=== PATIENT | female | born 1980 | race Caucasian/White ===

== ENCOUNTER 2021-05-19 22:34 | Emergency (ER) | payer BC ==
[~2021-05-19] VITALS: Ht 167.6 cm; Wt 77.1 kg
--- NOTE | 2021-05-19 23:00 | NUR ---
Pt provided urine sample, sent to lab.
[2021-05-19 23:24] LABS: HEMATOCRIT 36.8 % (31.2-41.9); MEAN CORPUSCULAR VOLUME 93.7 fL (75.5-95.3); PLATELET COUNT (AUTO) 196 K/uL (179-408)
[2021-05-19 23:27] LABS: *BILIRUBIN,URIN NEGATIVE (NEGATIVE); *BLOOD, URINE NEGATIVE (NEGATIVE); *CLARITY,URINE CLEAR (CLEAR); *COLOR,URINE YELLOW (YELLOW); *KETONES,URINE NEGATIVE (NEGATIVE); *UROBILINOGEN,URINE 0.2 E.U./dl (NORMAL); LEUKOCYTE ESTERASE ,URINE NEGATIVE (NEGATIVE); NITRITE, URINE NEGATIVE (NEGATIVE); PH,URINE 6.5 (5.0-8.0); UGLUCOSE NEGATIVE (NEGATIVE)
[2021-05-19 23:27] LABS: CARBON DIOXIDE 28 mmol/L (21-32); CHLORIDE 103 mmol/L (98-107); CREATININE 0.9 mg/dL (0.6-1.3); GLUCOSE 130 mg/dL (74-106); POTASSIUM 3.6 mmol/L (3.5-5.1); UREA NITROGEN, BLOOD 13 mg/dL (7-18)
[2021-05-19 23:32] LABS: ALANINE AMINOTRANSFERASE 88 U/L (14-59); ALKALINE PHOSPHATASE 102 U/L (50-136); ASPARTATE AMINOTRANSFERASE 48 U/L (15-37); BILIRUBIN,DIRECT 0.1 mg/dL (0.0-0.2); BILIRUBIN,TOTAL 0.1 mg/dL (0.2-1.0); LIPASE 135 U/L (73-393); TOTAL PROTEIN, SERUM 6.7 g/dL (6.4-8.2)
[2021-05-19] MEDS ORDERED: POLY17PO4 PO (23:59)
--- NOTE | 2021-05-20 00:04 | NUR ---
Patient discharged to home in stable condition. Written and verbal after care instructions given. Patient verbalizes understanding of instructions. Stressed follow up or return to ER for worsening s/s.
[2021-05-20 00:16] VITALS: BP 127/80
== END 2021-05-20 00:04 | disposition home or self-care (01) ==
LOC: ER 22:45
DX: R10.9 Unspecified abdominal pain (principal); K59.00 Constipation, unspecified; N20.0 Calculus of kidney; Z90.49 Acquired absence of other specified parts of digestive tract; F15.10 Other stimulant abuse, uncomplicated; Z88.2 Allergy status to sulfonamides; Z86.19 Personal history of other infectious and parasitic diseases
CPT/HCPCS: 36415; 83690; 85025; A4663